=== PATIENT | female | born 2000 | race Hispanic/Latino ===

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

== ENCOUNTER 2020-07-01 04:49 | Emergency (ER) | payer MEDICAID, OTHER | END 2020-07-01 05:36 | disposition home or self-care (01) | LOC: EDH 04:49 | DX: K59.00 Constipation, unspecified (principal); Z72.0 Tobacco use ==